=== PATIENT | female | born 1935 | race Caucasian/White ===

== ENCOUNTER 2023-04-10 14:24 | Emergency (ER) | payer MEDICARE ==
--- NOTE | 2023-04-10 14:53 | ED ---
Dizziness HPI - General Source: patient, family, RN notes reviewed Mode of arrival: ambulatory Limitations: no limitations <Sagar Davila - Last Filed: 04/10/23 14:51> <Hebert Conn - Last Filed: 04/10/23 20:32> - General Chief Complaint: Dizziness Stated Complaint: anxiety Time Seen by Provider: 04/10/23 14:51 - History of Present Illness Initial Comments: 87-year-old female presents emergency department with family for evaluation of increasing confusion, anxiety, dizziness. Patient states that she was evaluated by PCP was placed on some medications for last month a state that she has not been improving her memory has been getting worse. They state of recent she's been very anxious wandering, pacing the house. (Sagar Davila) This is an 87-year-old female presents emergency Department stating for the last couple days she's been a little bit dizzy. Patient states is getting worse. Patient states when she moves her head the symptoms are definitely worse. Patient states she is stumbling around when she walks she has to grab onto thinks she keep her balance. Patient denies headache patient denies any numbness or weakness. Patient denies any fever chills. Patient is chest pain palpitations difficulty breathing or shortness of breath per patient denies any previous history of similar. (Hebert Conn) - Related Data Previous Rx's Medication Instructions Recorded Meclizine [Antivert] 25 mg PO TID #20 tab 04/10/23 Nitrofurantoin Monohyd/M-Cryst 100 mg PO Q12HR #14 cap 04/10/23 [Macrobid] Allergies Allergy/AdvReac Type Severity Reaction Status Date / Time No Known Allergies Allergy Verified 04/10/23 14:48 Review of Systems ROS Other: All systems not noted in ROS Statement are negative. <Sagar Davila - Last Filed: 04/10/23 14:51> ROS Other: All systems not noted in ROS Statement are negative. <Hebert Conn - Last Filed: 04/10/23 20:32> ROS Statement: Those systems with pertinent positive or pertinent negative responses have been documented in the HPI. Past Medical History Past Medical History: Cancer, Hypertension, Memory Impairment, Thyroid Disorder Additional Past Medical History / Comment(s): breast cancer History of Any Multi-Drug Resistant Organisms: None Reported Past Surgical History: Appendectomy, Breast Surgery, Cholecystectomy Past Psychological History: No Psychological Hx Reported Smoking Status: Never smoker Past Alcohol Use History: None Reported Past Drug Use History: None Reported <Sagar Davila - Last Filed: 04/10/23 14:51> General Exam Limitations: no limitations General appearance: alert, in no apparent distress Head exam: Present: atraumatic, normocephalic, normal inspection Eye exam: Present: normal appearance, PERRL, EOMI. Absent: scleral icterus, conjunctival injection, periorbital swelling <Sagar Davila - Last Filed: 04/10/23 14:51> <ConnHebert - Last Filed: 04/10/23 20:32> - General Exam Comments Initial Comments: Visual Physical Exam Vital signs reviewed General: Well-appearing, nontoxic, no acute distress. Head: Normocephalic, atraumatic Eyes: PERRLA, EOMI ENT: Airway patent Chest: Nonlabored breathing Skin: No visual rash, normal skin tone Neuro: Alert and oriented 3 Musculoskeletal: No gross abnormalities (Sagar Davila) GENERAL: Patient is well-developed and well-nourished. Patient is nontoxic and well- hydrated and is in mild distress. ENT: Neck is soft and supple. No significant lymphadenopathy is noted. Oropharynx is clear. Moist mucous membranes. Neck has full range of motion without eliciting any pain. EYES: The sclera were anicteric and conjunctiva were pink and moist. Extraocular movements were intact and pupils were equal round and reactive to light. Eyelids were unremarkable. PULMONARY: Unlabored respirations. Good breath sounds bilaterally. No audible rales rhon chi or wheezing was noted. CARDIOVASCULAR: There is a regular rate and rhythm without any murmurs gallops or rubs. ABDOMEN: Soft and nontender with normal bowel sounds. No palpable organomegaly was noted. There is no palpable pulsatile mass. SKIN: Skin is clear with no lesions or rashes and otherwise unremarkable. NEUROLOGIC: Patient is alert and oriented sensory. Cranial nerves II through XII are grossly intact. Motor and sensory are also intact. Normal speech, volume and content. Symmetrical smile. Nose testing is normal bilaterally MUSCULOSKELETAL: Normal extremities with adequate strength and full range of motion. No lower extremity swelling or edema. No calf tenderness. LYMPHATICS: No significant lymphadenopathy is noted PSYCHIATRIC: Normal psychiatric evaluation. (Hebert Conn) Course Vital Signs 04/10/23 04/10/23 04/10/23 14:41 17:16 20:24 Temperature 97.7 F 97.6 F 97.6 F Pulse Rate 84 63 87 Respiratory 20 18 18 Rate Blood Pressure 137/86 157/89 146/88 O2 Sat by Pulse 99 98 100 Oximetry Medical Decision Making <Sagar Davila - Last Filed: 04/10/23 14:51> - Lab Data Result diagrams: 04/10/23 15:07 04/10/23 15:07 <Hebert Conn - Last Filed: 04/10/23 20:32> - Medical Decision Making I completed the quick note portion of this chart signed Sagar Davila PA-C (Sagar Davila) EKG shows a sinus rhythm with occasional PAC at 74 bpm FL interval 240 dresses 86 Q-T intervals 370 QTC is 397. Was pt. sent in by a medical professional or institution ([facility], [facility], urgent care, hospital, or snf...) When possible be specific @ -No Did you speak to anyone other than the patient for history (EMS, parent, family, police, friend...)? What history was obtained from this source @ -No Did you review nursing and triage notes (agree or disagree)? Why? @ -I reviewed and agree with nursing and triage notes Were old charts reviewed (outside hosp., previous admission, EMS record, old EKG, old radiological studies, urgent care reports/EKG's, snf records)? Report findings @ -I reviewed prior charts from prior labwork on this patient Differential Diagnosis (chest pain, altered mental status, abdominal pain women, abdominal pain men, vaginal bleeding, weakness, fever, dyspnea, syncope, headache, dizziness, GI bleed, back pain, seizure, CVA, palpatations, mental health, musculoskeletal)? @ -Differential Dizziness: Benign paroxysmal positional Vertigo, Menieres disease, otitis media, acoustic neuroma, vertebrobasilar insufficiency, cerebellar stroke, encephalitis, hypovolemic, arrhythmia, coronary artery syndrome, anemia, this is not meant to be an all-inclusive list EKG interpreted by me (3pts min.). @ -As above X-rays interpreted by me (1pt min.). @ -None done CT interpreted by me (1pt min.). @ -CT of the brain shows no acute abnormality U/S interpreted by me (1pt. min.). @ -None done What testing was considered but not performed or refused? (CT, X-rays, U/S, labs)? Why? @ -None What meds were considered but not given or refused? Why? @ -None Did you discuss the management of the patient with other professionals (professionals i.e. , PA, [facility], lab, RT, psych nurse, elementary school social worker, support teacher, teacher, staff electronic warfare officer, field nurse case manager)? Give summary @ -No Was smoking cessation discussed for >3mins.? @ -No Was critical care preformed (if so, how long)? @ -No Were there social determinants of health that impacted care today? How? (Homelessness, low income, unemployed, alcoholism, drug addiction, transportation, low edu. Level, literacy, decrease access to med. care, senior care, rehab)? @ -No Was there de-escalation of care discussed even if they declined (Discuss DNR or withdrawal of care, Hospice)? DNR status @ -No What co-morbidities impacted this encounter? (DM, HTN, Smoking, COPD, CAD, Cancer, CVA, ARF, Chemo, Hep., AIDS, mental health diagnosis, sleep apnea, morbid obesity)? @ -None Was patient admitted / discharged? Hospital course, mention meds given and route, prescriptions, significant lab abnormalities, going to OR and other pertinent info. @ -Patient was given Valium and Antivert and was feeling considerably better and felt comfortable going home. Patient also had a little bit of bacteria in the urine. So patient is given a gram of Rocephin and an antibiotic to go home with. Undiagnosed new problem with uncertain prognosis? @ -No Drug Therapy requiring intensive monitoring for toxicity (Heparin, Nitro, Insulin, Cardizem)? @ -No Were any procedures done? @ -No Diagnosis/symptom? @ -Vertigo Acute, or Chronic, or Acute on Chronic? @ -Acute Uncomplicated (without systemic symptoms) or Complicated (systemic symptoms)? @ -Complicated Side effects of treatment? @ -No Exacerbation, Progression, or Severe Exacerbation? @ -No Poses a threat to life or bodily function? How? (Chest pain, [place], [place], pneumonia, PE, COPD, DKA, ARF, appy, cholecystitis, CVA, Diverticulitis, Homicidal, Suicidal, threat to staff... and all critical care pts) @ -No Diagnosis/symptom? @ -Urinary tract infection Acute, or Chronic, or Acute on Chronic? @ -Acute Uncomplicated (without systemic symptoms) or Complicated (systemic symptoms)? @ -default Side effects of treatment? @ -none Exacerbation, Progression, or Severe Exacerbation] @ -no Poses a threat to life or bodily function? @ -no (Hebert Conn) - Lab Data Lab Results 04/10/23 04/10/23 04/10/23 Range/Units 15:07 15:07 17:24 WBC 8.5 (3.8-10.6) k/uL RBC 5.09 (3.80-5.40) m/uL Hgb 15.5 (11.4-16.0) gm/dL Hct 46.9 H (34.0-46.0) % MCV 92.1 (80.0-100.0) fL MCH 30.5 (25.0-35.0) pg MCHC 33.1 (31.0-37.0) g/dL RDW 13.8 (11.5-15.5) % Plt Count 284 (150-450) k/uL MPV 8.4 Neutrophils % 67 % Lymphocytes % 24 % Monocytes % 6 % Eosinophils % 1 % Basophils % 1 % Neutrophils # 5.7 (1.3-7.7) k/uL Lymphocytes # 2.0 (1.0-4.8) k/uL Monocytes # 0.5 (0-1.0) k/uL Eosinophils # 0.1 (0-0.7) k/uL Basophils # 0.1 (0-0.2) k/uL Sodium 138 (137-145) mmol/L Potassium 4.5 (3.5-5.1) mmol/L Chloride 106 (98-107) mmol/L Carbon Dioxide 14 L (22-30) mmol/L Anion Gap 18 mmol/L BUN 57 H (7-17) mg/dL Creatinine 1.95 H (0.52-1.04) mg/dL Est GFR (CKD-EPI)AfAm 26 (>60 ml/min/1.73 sqM) Est GFR (CKD-EPI)NonAf 23 (>60 ml/min/1.73 sqM) Glucose 124 H (74-99) mg/dL Calcium 11.0 H (8.4-10.2) mg/dL Magnesium 2.1 (1.6-2.3) mg/dL Total Bilirubin 1.1 (0.2-1.3) mg/dL AST 24 (14-36) U/L ALT 19 (4-34) U/L Alkaline Phosphatase 66 (38-126) U/L Total Protein 7.8 (6.3-8.2) g/dL Albumin 4.8 (3.5-5.0) g/dL Urine Color Light Yellow Urine Appearance Slightly Cloudy H (Clear) Urine pH 6.0 (5.0-8.0) Ur Specific [place] 1.030 (1.001-1.035) Urine Protein Negative (Negative) Urine Glucose (UA) Negative (Negative) Urine Ketones Negative (Negative) Urine Blood Negative (Negative) Urine Nitrite Negative (Negative) Urine Bilirubin Negative (Negative) Urine Urobilinogen <2.0 (<2.0) mg/dL Ur Leukocyte Esterase Small (Negative) Urine RBC 1 (0-5) /hpf Urine Red Cell Clumps NONE (None) /hpf Urine WBC 6 H (0-5) /hpf Urine WBC Clumps NONE (None) /hpf Ur Squamous Epith Cells 2 (0-4) /hpf Urine Bacteria Many H (None) /hpf Urine Mucus Many H (None) /hpf Disposition <Sagar Davila - Last Filed: 04/10/23 14:51> Is patient prescribed a controlled substance at d/c from ED?: No Time of Disposition: 20:31 <Hebert Conn - Last Filed: 04/10/23 20:32> Clinical Impression: Vertigo, Urinary tract infection Disposition: HOME SELF-CARE Condition: Good Instructions (If sedation given, give patient instructions): Vertigo (ED), Urinary Tract Infection in Women (ED) Prescriptions: Meclizine [Antivert] 25 mg PO TID #20 tab Nitrofurantoin Monohyd/M-Cryst [Macrobid] 100 mg PO Q12HR #14 cap Referrals: Mike Chaudhari MD [Primary Care Provider] - 1-2 days
[2023-04-10 15:35] LABS: Basophils # (A) 0.1 k/uL (0-0.2); Basophils % (A) 1 %; Eosinophils # (A) 0.1 k/uL (0-0.7); Eosinophils % (A) 1 %; HCT 46.9 % (34.0-46.0); HGB 15.5 gm/dL (11.4-16.0); Lymphocytes % (A) 24 %; MCH 30.5 pg (25.0-35.0); MCHC 33.1 g/dL (31.0-37.0); MCV 92.1 fL (80.0-100.0); Mean Platelet Volume 8.4; Monocytes # (A) 0.5 k/uL (0-1.0); Monocytes % (A) 6 %; Neutrophils # (A) 5.7 k/uL (1.3-7.7); Neutrophils % (A) 67 %; Platelet Count 284 k/uL (150-450); RBC 5.09 m/uL (3.80-5.40); RDW 13.8 % (11.5-15.5); WBC 8.5 k/uL (3.8-10.6)
[2023-04-10 15:49] LABS: ALT 19 U/L (4-34); AST 24 U/L (14-36); African American GFR (CKD) 26 (>60 ml/min/1.73 sqM); Albumin 4.8 g/dL (3.5-5.0); Alkaline Phosphatase 66 U/L (38-126); Anion Gap 18 mmol/L; Blood Urea Nitrogen 57 mg/dL (7-17); Carbon Dioxide 14 mmol/L (22-30); Chloride 106 mmol/L (98-107); Glucose 124 mg/dL (74-99); Magnesium 2.1 mg/dL (1.6-2.3); Non-African American GFR(CKD) 23 (>60 ml/min/1.73 sqM); Potassium 4.5 mmol/L (3.5-5.1); Sodium 138 mmol/L (137-145); Total Bilirubin 1.1 mg/dL (0.2-1.3); Total Protein 7.8 g/dL (6.3-8.2)
[2023-04-10] MEDS ORDERED: MECLIZINE 25 MG TAB PO STA (17:20)
[2023-04-10 17:21] VITALS: RESP 18; TEMP 97.6
--- NOTE | 2023-04-10 18:54 | CT ---
EXAMINATION TYPE: CT brain wo con DATE OF EXAM: 04/10/2023 HISTORY: dizziness x2 days CT DLP: 1063.4 mGycm. Automated Exposure Control for Dose Reduction was Utilized. TECHNIQUE: CT scan of the head is performed without contrast. COMPARISON: None. FINDINGS: There is no skull fracture or acute intracranial hemorrhage. No mass or mass effect, or foc al encephalomalacia. No definite acute attenuation defect. No extra-axial fluid collection. The orbits are intact and the orbital contents are unremarkable. Paranasal sinuses, mastoid sinus air cells and middle ear cavities are clear. IMPRESSION: No acute process.
[2023-04-10 19:36] LABS: Appearance,Urine Slightly Cloudy (Clear); Bilirubin,Urine Negative (Negative); Blood,Urine Negative (Negative); Color,Urine Light Yellow; Glucose,Urine (UA) Negative (Negative); Ketones,Urine Negative (Negative); Protein,Urine Negative (Negative)
[2023-04-10 19:37] LABS: Leukocyte Esterase,Urine Small (Negative); Nitrite,Urine Negative (Negative); Urobilinogen,Urine <2.0 mg/dL (<2.0)
[2023-04-10 19:39] LABS: RBC,Urine 1 /hpf (0-5); Squamous Epithelial Cell,Urine 2 /hpf (0-4); WBC,Urine 6 /hpf (0-5)
[2023-04-10 19:40] LABS: Bacteria,Urine Many /hpf; Mucus,Urine Many /hpf
[2023-04-10] MEDS ORDERED: cefTRIAXone IN SWFI 1,000 MG/10 ML SYRINGE IVP STA (20:17)
[2023-04-10 20:34] VITALS: BP 146/88; PULSE 87
== END 2023-04-10 20:38 | disposition home or self-care (01) ==
LOC: EC 14:24
DX: R42 Dizziness and giddiness (principal); N39.0 Urinary tract infection, site not specified; F41.9 Anxiety disorder, unspecified; I10 Essential (primary) hypertension; Z90.49 Acquired absence of other specified parts of digestive tract
CPT/HCPCS: 36415; 93005; 80053; 83735; 85025; 81001; 70450; 99285; 96374; 96375; J3360; J0696